=== PATIENT | female | born 1980 ===

== ENCOUNTER 2023-04-09 08:48 | Emergency (ER) | payer BC ==
[2023-04-09] MEDS ORDERED: Codeine/guaiFENesin 100mg-10 MG/5 ML Soln 118 ML Bottle PO ONE (08:49)
[2023-04-09] MEDS ORDERED: Doxycycline 100 MG Tab PO ONE (08:49)
== END 2023-04-09 09:52 | disposition home or self-care (01) ==
LOC: FB.ED 08:48
DX: R05.2 Subacute cough (principal); Z88.1 Allergy status to other antibiotic agents; Z88.0 Allergy status to penicillin; Z79.899 Other long term (current) drug therapy
CPT/HCPCS: 99283; A9270

== ENCOUNTER 2024-07-23 21:41 | Emergency (ER) | payer BC ==
[2024-07-23 22:25] LABS: BASOPHILS ABSOLUTE AUTO 0.1 x10-3/uL (0.0-0.1); BASOPHILS PERCENT AUTO 0.9 % (0.2-1.5); EOSINOPHILS ABSOLUTE AUTO 0.3 x10-3/uL (0.0-0.8); EOSINOPHILS PERCENT AUTO 3.9 % (0.6-8.1); HEMATOCRIT 38.5 % (34.2-48.2); LYMPHOCYTES ABSOLUTE AUTO 2.7 x10-3/uL (1.0-4.4); LYMPHOCYTES PERCENT AUTO 37.8 % (18.4-52.1); MEAN CORPUSCULAR HGB CONC 33.9 g/dL (31.9-34.8); MEAN CORPUSCULAR VOLUME 94.5 fL (76.7-100.5); MEAN PLATELET VOLUME 8.7 fL (7.1-12.4); MONOCYTES ABSOLUTE AUTO 0.5 x10-3/uL (0.3-1.0); MONOCYTES PERCENT AUTO 7.6 % (4.4-15.7); NEUTROPHILS ABSOLUTE AUTO 3.6 x10-3/uL (1.5-6.3); NEUTROPHILS PERCENT AUTO 49.8 % (30.8-76.2); PLATELET COUNT,PLT 236 x10(3)uL (151-488); RED BLOOD CELL COUNT 4.07 x10(6)uL (3.60-5.20); WHITE BLOOD CELL COUNT,WBC 7.2 x10-3/uL (3.0-10.3)
[2024-07-23 22:30] LABS: BLOOD UREA NITROGEN,BUN 23 mg/dL (7-18); CALCIUM 9.1 mg/dL (8.6-10.2); CARBON DIOXIDE,CO2 24 mmol/L (21-32); CHLORIDE,CL 107 mmol/L (100-110); ESTIMATED GFR 71 mL/min (>60); GLUCOSE RANDOM 98 mg/dL (80-116); POTASSIUM,K 4.1 mmol/L (3.5-5.3); SODIUM,NA 142 mmol/L (135-145)
[2024-07-23 22:34] LABS: ACETAMINOPHEN < 2 ug/mL (<2)
[2024-07-23 22:36] LABS: A/G RATIO 1.1; ALANINE AMINOTRANSFERASE,ALT 35 U/L (12-36); ALBUMIN 3.5 g/dL (3.5-5.2); ALKALINE PHOSPHATASE 54 IU/L (56-112); ASPARTATE AMNIOTRANSFERASE,AST 26 IU/L (5-25); BILIRUBIN TOTAL 0.1 mg/dL (0.1-1.3); PROTEIN TOTAL,TP 6.7 g/dL (6.0-8.0)
[2024-07-23 22:44] LABS: TSH ULTRASENSITIVE 5.28 IU/mL (0.36-3.74)
[2024-07-23 22:47] LABS: ETHANOL BLOOD MEDICAL < 0.03 % (<0.03)
[2024-07-23 22:53] LABS: AMPHETAMINES SCREEN, URINE NEGATIVE (NEGATIVE); BARBITURATE SCREEN,URINE NEGATIVE (NEGATIVE); BENZODIAZEPINES SCREEN,URINE NEGATIVE (NEGATIVE); METHADONE SCREEN, URINE NEGATIVE (NEGATIVE); METHAMPHETAMINE SCREEN, URINE NEGATIVE (NEGATIVE); OXYCODONE SCREEN,URINE NEGATIVE (NEGATIVE); THC SCREEN,URINE NEGATIVE (NEGATIVE)
[2024-07-23 22:54] LABS: BUPRENORPHINE SCREEN,URINE NEGATIVE (NEGATIVE)
[2024-07-23 22:56] LABS: APPEARANCE,URINE CLEAR (CLEAR); BILIRUBIN,URINE NEGATIVE (NEGATIVE); COLOR,URINE YELLOW (YELLOW); GLUCOSE,URINE NORMAL (NORMAL); KETONES,URINE NEGATIVE (NEGATIVE); LEUKOCYTE ESTERASE,URINE NEGATIVE (NEGATIVE); NITRITE,URINE NEGATIVE (NEGATIVE); OCCULT BLOOD,URINE TRACE (NEGATIVE); PROTEIN,URINE NEGATIVE (NEGATIVE); UROBILINOGEN,URINE NORMAL (NEGATIVE)
[2024-07-23 22:57] LABS: BACTERIA,URINE OCCASIONAL (NS); RBC,URINE 0-5 (0-5); SQUAMOUS EPITHELIAL CELLS,UR OCCASIONAL (NS,R,O); WBC,URINE 0-5 (0-5)
[2024-07-23] MEDS: Sodium Chloride 0.9% 1,000 ML IV SCH (23:04)
[2024-07-23] MEDS: Magnesium Sulfate/Water Premix 1 GM in Premix Bag 1 BAG IV ONE (23:22)
[2024-07-24] MEDS: Sodium Chloride 0.9% 1,000 ML IV SCH (00:45)
[2024-07-24] MEDS: Ondansetron 4 MG/2 ML SDV IVPUSH ONE (02:25)
[2024-07-24] MEDS: levETIRAcetam 1,250 MG in Sodium Chloride 0.9% 100 ML IV ONE ×3 (02:50→05:29)
[2024-07-24] MEDS: LORazepam 2 MG/ML SDV IVPUSH ONE ×3 (03:27→05:51)
[2024-07-24] MEDS: Sodium Chloride 0.9% 10 ML Syringe FLUSH PRN (03:34)
[2024-07-24] MEDS: Magnesium Sulfate/Water Premix 2 GM in Premix Bag 1 BAG IV ONE ×2 (04:28→04:58)
[2024-07-24] MEDS ORDERED: Norepinephrine 4 MG in Dextrose 5% in Water 246 ML IV SCH (04:45)
[2024-07-24] MEDS: Norepinephrine Bit/D5W Premix 4 MG in Premix Bag 1 BAG IV SCH (04:56)
[2024-07-24] MEDS: Norepinephrine Bit/D5W Premix 250 ML ONE (04:58)
[2024-07-24] MEDS: Sodium Chloride 0.9% 100 ML ONE (05:43)
[2024-07-26 00:14] LABS: THYROXINE FREE 1.6 ng/dL (0.9-1.7)
== END 2024-07-24 06:05 ==
LOC: FB.ED 21:41
DX: T65.92XA Toxic effect of unspecified substance, intentional self-harm, initial encounter (principal); E86.0 Dehydration; E03.9 Hypothyroidism, unspecified; R56.9 Unspecified convulsions; F90.9 Attention-deficit hyperactivity disorder, unspecified type; F41.8 Other specified anxiety disorders; J45.909 Unspecified asthma, uncomplicated; Z86.16 Personal history of COVID-19; Z79.899 Other long term (current) drug therapy; Z79.890 Hormone replacement therapy; Z88.0 Allergy status to penicillin; Z88.1 Allergy status to other antibiotic agents
CPT/HCPCS: 36415; 80053; 80143; 80179; 80307; 81001; 81025; 83735; 84439; 84443; 85025; 93005; 96361; 96365; 96367; 96368; 96375; 96376; 99285; J1953; J2060; J2405; J3475; J3490; J7030